=== PATIENT | female | born 1970 | race Caucasian/White ===

== ENCOUNTER 2017-09-15 06:34 | Day surgery (SDC) | payer SELFPAY ==
[2017-09-14 13:29] VITALS: BMI 32.5
[2017-09-15] MEDS ORDERED: SODIUM BICARBONATE 8.4% 50 MEQ/50 ML VIAL ONE (09:08)
[2017-09-15] MEDS ORDERED: EPINEPHrine/PF 1 MG/1 ML (1:1,000) AMPULE ONE (09:08)
[2017-09-15] MEDS ORDERED: LIDOCAINE HCL 2% (20ML MULTI-DOSE VIAL) NR ONE (09:08)
[2017-09-15] MEDS ORDERED: MIDAZOLAM HCL 2 MG/2 ML SINGLE DOSE VIAL ONE (09:22)
[2017-09-15] MEDS ORDERED: ONDANSETRON 4 MG/2 ML VIAL ONE ×2 (09:33→15:19)
[2017-09-15] MEDS ORDERED: fentaNYL CITRATE 250 MCG/5 ML VIAL ONE (09:33)
[2017-09-15] MEDS ORDERED: DEXAMETHASONE SOD PHOSPHATE 4 MG/1 ML VIAL ONE (09:33)
[2017-09-15] MEDS ORDERED: ceFAZolin SODIUM 1 GM VIAL ONE ×2 (09:33→13:39)
[2017-09-15] MEDS ORDERED: ROCURONIUM BROMIDE 50 MG/5 ML VIAL ONE ×4 (09:34→13:34)
[2017-09-15] MEDS ORDERED: PROPOFOL 20 ML ONE (09:34)
[2017-09-15] MEDS ORDERED: HEPARIN NA (PORCINE) 5,000 UNITS/ML 1ML VIAL ONE (10:00)
[2017-09-15] MEDS ORDERED: ONDANSETRON 4 MG/2 ML VIAL IVPUSH PRN (14:32)
[2017-09-15] MEDS ORDERED: NEOSTIGMINE METHYLSULFATE 0.5 MG/ML - 10 ML MDV ONE (14:38)
[2017-09-15] MEDS ORDERED: LACTATED RINGERS SOLUTION 1,000 ML IV SCH (14:45)
[2017-09-15] MEDS ORDERED: oxyCODONE HCL 5 MG TABLET ONE ×3 (16:25→18:28)
[2017-09-15] MEDS: oxyCODONE HCL 5 MG TABLET PO PRN ×2 (16:28→16:40)
[2017-09-15 19:04] VITALS: BP 150/90; PULSE 70; TEMP 97.9
== END 2017-09-15 18:50 | disposition home or self-care (01) ==
LOC: FASU 06:34
PROVIDERS: ATTEND Plastic Surgery
CPT/HCPCS: 84703; J1644